=== PATIENT | female | born 1990 | race Caucasian/White ===

== ENCOUNTER 2020-08-12 19:53 | Inpatient (IN) | payer OTHER, MEDICAID ==
[~2020-08-12] VITALS: Ht 160 cm; Wt 72.7 kg
[~2020-08-12 19:53] MED LIST: NAPROXEN; [UNRECOGNIZED DRUG - OTHER]
[2020-08-12] MEDS ORDERED: BUPIVACAINE HCL/PF 0.25% 10 ML VIAL SQ ONE (20:15)
[2020-08-12 20:54] LABS: BASOPHILS % (AUTO) 1.1 % (0.0-2.0); EOSINOPHILS % (AUTO) 1.1 % (1.0-6.0); HEMATOCRIT 39.3 % (36-46); HEMOGLOBIN 12.8 g/dL (12.0-16.0); LYMPHOCYTES # (AUTO) 1.6 K/uL (1.0-4.8); LYMPHOCYTES % (AUTO) 19.7 % (22.0-44.0); MEAN CORPUSCULAR HEMOGLOBIN 28.9 pg (26.0-34.0); MEAN CORPUSCULAR HGB CONC 32.7 G/dL (31.0-37.0); MEAN CORPUSCULAR VOLUME 88 fL (80-100); MONOCYTES # (AUTO) 0.6 K/uL (0.1-1.0); NEUTROPHILS # (AUTO) 5.6 K/uL (1.8-7.7); NEUTROPHILS % (AUTO) 70.1 % (40.0-70.0); PLATELET COUNT (AUTO) 324 K/uL (150-450); RED BLOOD CELL COUNT(AUTO) 4.45 MIL/uL (4.00-5.20); RED CELL DISTRIBUTION WIDTH 13.2 % (11.5-14.5)
[2020-08-12 21:05] LABS: ANION GAP 9 mmol/L (8-16); CALCIUM, TOTAL 9.3 mg/dL (8.8-10.5); CARBON DIOXIDE 28 mmol/L (22-29); CHLORIDE 101 mmol/L (98-107); CREATININE 0.97 mg/dL (0.60-1.30); GLOMERULAR FILTR. RATE CALC > 60 mL/min (>60); GLUCOSE,RANDOM 100 mg/dL (70-110); POTASSIUM 3.7 mmol/L (3.5-5.1); SODIUM SERUM 138 mmol/L (136-145); UREA NITROGEN, BLOOD 18 mg/dL (7-18)
[2020-08-12 21:10] LABS: ALANINE AMINOTRANSFERASE 22 U/L (12-78); ALBUMIN 3.8 g/dL (3.4-5.0); ALKALINE PHOSPHATASE 81 U/L (46-116); ASPARTATE AMINOTRANSFERASE 21 U/L (15-37); BILIRUBIN,TOTAL 0.3 mg/dL (0.1-1.0); TOTAL PROTEIN, SERUM 7.4 g/dL (6.4-8.2)
[2020-08-12 21:11] LABS: COVID AG,FIA SOURCE NASOPHARYNGEAL
[2020-08-12] MEDS ORDERED: ACETAMINOPHEN 500 MG TABLET PO ONE (21:15)
[2020-08-12] MEDS ORDERED: HALOPERIDOL 5 MG TABLET PO PRN (21:45)
[2020-08-13] MEDS ORDERED: IBUPROFEN 600 MG TABLET PO ONE (01:30)
[2020-08-13 02:30] VITALS: BP 108/69
[2020-08-13] MEDS: ZOLPIDEM TARTRATE 10 MG TABLET PO PRN ×2 (02:34→23:12)
[2020-08-13 06:20] LABS: CHOL/HDL RATIO 3.6 (3.9-5.7)
[2020-08-13] MEDS: FLUoxetine HCL 20 MG CAPSULE PO SCH (12:36)
[2020-08-13 12:52] VITALS: BP 100/64
[2020-08-13] MEDS ORDERED: DOCUSATE SODIUM 100 MG CAPSULE PO PRN (14:45)
[2020-08-13] MEDS ORDERED: NICOTINE 14 MG/24 HOUR PATCH TD PRN (14:45)
[2020-08-13] MEDS ORDERED: ONDANSETRON HCL 4 MG TABLET PO PRN (14:45)
[2020-08-13] MEDS ORDERED: CloNIDine HCL 0.1 MG TABLET PO PRN (14:45)
[2020-08-13] MEDS ORDERED: PETROLATUM,WHITE 28 GM JELLY TP PRN (14:45)
[2020-08-13] MEDS ORDERED: ALBUTEROL SULFATE HFA 90 MCG/PUFF 8 GM INHALER IH PRN (14:45)
[2020-08-13] MEDS ORDERED: MAG HYDROX/AL HYDROX/SIMETH ES 30 ML SUSPENSION UDCUP PO PRN (14:45)
[2020-08-13] MEDS ORDERED: MAGNESIUM HYDROXIDE SUSPENSION 30 ML UDCUP PO PRN (14:45)
[2020-08-13] MEDS ORDERED: LOPERAMIDE HCL 2 MG CAPSULE PO PRN (14:45)
[2020-08-13] MEDS ORDERED: GuaiFENesin/D-METHORPHAN [SUGAR-FREE] 200-20MG/10 ML SYRUP UDCUP PO PRN (14:45)
[2020-08-13] MEDS: IBUPROFEN 400 MG TABLET PO PRN (15:15)
[2020-08-13 16:00] VITALS: BP 114/70
[2020-08-13] MEDS: LORazepam 2 MG TABLET PO PRN (17:05)
[2020-08-14 08:11] VITALS: BP 117/82
[2020-08-14] MEDS: FLUoxetine HCL 20 MG CAPSULE PO SCH (08:41)
[2020-08-14] MEDS: IBUPROFEN 400 MG TABLET PO PRN ×2 (10:42→20:17)
[2020-08-14 16:09] VITALS: BP 106/75
[2020-08-14] MEDS: LORazepam 2 MG TABLET PO PRN (20:17)
[2020-08-14] MEDS: ZOLPIDEM TARTRATE 10 MG TABLET PO PRN (22:12)
[2020-08-15 08:13] VITALS: BP 117/88
[2020-08-15] MEDS: IBUPROFEN 400 MG TABLET PO PRN ×2 (08:16→16:20)
[2020-08-15] MEDS: ASCORBIC ACID 500 MG TABLET PO SCH (08:17)
[2020-08-15] MEDS: FLUoxetine HCL 20 MG CAPSULE PO SCH (08:17)
[2020-08-15] MEDS: MULTIVITAMINS WITH MINERALS, THERAPEUTIC TABLET PO SCH (08:17)
[2020-08-15] MEDS ORDERED: FLUO20CA36 PO (09:15)
[2020-08-15] MEDS: ACETAMINOPHEN 325 MG TABLET PO PRN ×2 (09:47→20:38)
[2020-08-15] MEDS: LORazepam 2 MG TABLET PO PRN (20:35)
[2020-08-15] MEDS: ZOLPIDEM TARTRATE 10 MG TABLET PO PRN (22:24)
[2020-08-16 00:42] VITALS: BP 112/62
[2020-08-16] MEDS: MULTIVITAMINS WITH MINERALS, THERAPEUTIC TABLET PO SCH (10:00)
[2020-08-16] MEDS: FLUoxetine HCL 20 MG CAPSULE PO SCH (10:00)
[2020-08-16] MEDS: ASCORBIC ACID 500 MG TABLET PO SCH (10:01)
[2020-08-16 12:18] VITALS: BP 122/76
[2020-08-16] MEDS ORDERED: ASCO500 PO (13:48)
[2020-08-16] MEDS ORDERED: MULT-711 PO (13:48)
== END 2020-08-16 16:00 | disposition home or self-care (01) | DRG 885 ==
LOC: EMS 19:54 → 3EI 21:35
PROC: 0HQDXZZ Repair Right Lower Arm Skin, External Approach (ICD-10-PCS; principal; 2020-08-12)
DX: F33.2 Major depressive disorder, recurrent severe without psychotic features (principal); F41.9 Anxiety disorder, unspecified; G47.00 Insomnia, unspecified; Z20.822 Contact with and (suspected) exposure to COVID-19; S61.511A Laceration without foreign body of right wrist, initial encounter; X58.XXXA Exposure to other specified factors, initial encounter; Z56.0 Unemployment, unspecified; Z59.0 Homelessness; Z79.899 Other long term (current) drug therapy; Z91.5 Personal history of self-harm; Y93.89 Activity, other specified; Y92.89 Other specified places as the place of occurrence of the external cause; Y99.8 Other external cause status
CPT/HCPCS: 80053; 80061; 85025; 87426; 99285; G0480; J3490